=== PATIENT | male | born 1965 | race Caucasian/White ===

== ENCOUNTER 2016-10-08 21:43 | Observation (INO) | payer OTHER ==
[~2016-10-08] VITALS: Ht 180.3 cm; Wt 94.5 kg
[~2016-10-08 21:43] MED LIST: ASPIR-LOW81 MG PO; ATORVASTATIN CA80 MG PO; BRILINTA90 MG PO; GABAPENTIN; LISINOPRIL10 MG PO; LOPRESSOR25 MG PO; MAGNESIUM250 MG PO; METFORMIN HCL500 M1 PO; METFORMIN HCL500 MG PO; NEURONTIN300 MG PO; NITROSTAT0.4 MG SL; PAXIL10 MG PO; PROPRANOLOL HCL60 MG PO; VITAMIN B-121000 MC1 PO; VITAMIN B12 100MCG PO; ZOLOFT50 MG PO; vitamin b12 PO
[2016-10-08 23:20] LABS: HEMATOCRIT 50.8 % (38.0-50.0); MCH 27.1 PG (29.0-34.0); MCHC 33.1 G/DL (30.0-36.0); MCV 81.9 FL (86-99); MEAN PLAT.VOLUME 10.7 uM^3 (9.0-12.4); PLATELET COUNT 249 K/uL (156-360); RBC DIS.WIDTH-CV 13.1 % (11.8-14.6); RBC DIS.WIDTH-SD 38.2 % (39-53); WHITE BLOOD COUNT 8.9 K/uL (4.1-10.2)
[2016-10-08 23:29] LABS: CHLORIDE 103 mEq/L (99-109); POTASSIUM 4.1 mEq/L (3.7-5.4); SODIUM 139 mEq/L (136-147)
[2016-10-08 23:31] LABS: GLUCOSE 127 mg/dL (70-99)
[2016-10-08 23:32] LABS: ANION GAP 10 MEQ/L (2-14)
[2016-10-08 23:34] LABS: GFR ESTIMATE (CALCULATED) > 59 mL/min/
[2016-10-08 23:35] LABS: UREA NITROGEN (BUN) 16 mg/dL (9-23)
[2016-10-08 23:41] LABS: TROP-I INTERPRETATION NEGATIVE; TROPONIN-I < 0.01 ng/mL (0.0-0.30)
[2016-10-09] MEDS ORDERED: LO-DOSE ASPIRIN81 M2 PO (01:25)
[2016-10-09] MEDS ORDERED: ATORVASTATIN CA20 MG PO (01:25)
[2016-10-09] MEDS ORDERED: ONE-A-DAY ESSE1 EAC1 PO (01:26)
[2016-10-09 06:31] LABS: CHLORIDE 103 mEq/L (99-109); POTASSIUM 4.2 mEq/L (3.7-5.4); SODIUM 137 mEq/L (136-147)
[2016-10-09 06:33] LABS: GLUCOSE 147 mg/dL (70-99)
[2016-10-09 06:35] LABS: ANION GAP 9 MEQ/L (2-14)
[2016-10-09 06:37] LABS: GFR ESTIMATE (CALCULATED) > 59 mL/min/
[2016-10-09 06:38] LABS: UREA NITROGEN (BUN) 16 mg/dL (9-23)
[2016-10-09 06:43] LABS: TROP-I INTERPRETATION NEGATIVE; TROPONIN-I < 0.01 ng/mL (0.0-0.30)
[2016-10-09 08:12] VITALS: BP 114/80
[2016-10-09] MEDS ORDERED: CARVEDILOL3.125 MG PO (11:19)
[2016-10-09] MEDS ORDERED: LISINOPRIL2.5 MG PO (11:20)
[2016-10-09 11:32] VITALS: BP 125/83
[2016-10-09 12:44] LABS: TROP-I INTERPRETATION NEGATIVE; TROPONIN-I < 0.01 ng/mL (0.0-0.30)
== END 2016-10-09 14:06 | disposition home or self-care (01) ==
LOC: EME 21:43 → EDOF 10-09 03:13 → 5WEST 10-09 08:03
PROVIDERS: Hospitalist
DX: I25.119 Atherosclerotic heart disease of native coronary artery with unspecified angina pectoris (principal); M79.602 Pain in left arm; I25.2 Old myocardial infarction; Z95.5 Presence of coronary angioplasty implant and graft; I10 Essential (primary) hypertension; E11.9 Type 2 diabetes mellitus without complications; E78.2 Mixed hyperlipidemia; G43.909 Migraine, unspecified, not intractable, without status migrainosus
CPT/HCPCS: 71020; 80048; 84484; 85027; 93005; 99281; 99285; G0378; J1650